=== PATIENT | male | born 1990 | race Caucasian/White ===

== ENCOUNTER 2017-10-02 12:27 | Inpatient (IN) | payer BC, OTHER ==
[~2017-10-02] VITALS: Ht 170.2 cm; Wt 108.9 kg
--- NOTE | 2017-10-02 12:30 | NUR ---
pre-assessment note: pt is in stable condition, V/S WNL. pt is able to sign consents and also verbalizes he understands unit protocols and procedures.
--- NOTE | 2017-10-02 13:04 | NUR ---
Pt. is 27 year old male , admitted to [facility] for medically supervised withdrawal from ETOH withdrawal/dependence . Pt. is NKA, Full Code, on Regular Diet. He is already placed on a 5 day ativan taper, will be started on 10/02/2017. He doesn't have Primary Care Provider at this time, doesn't have prescribed medications. Pt. denies history of withdrawal-induced seizures, pt also denies any medical history except for having surgery on his left wrist. pt verbalized he does not have withdrawal induced seizures. pt is the main source of information, pt at this time appears flushed and is not currently intoxicated, pt verbalizes this is his first time in treatment and has never been to detox. pt was accompanied by his father. pt denies having a primary care physician. pt's V/S are WNL, pt without complaints at this time, re-enforced rules and regulations of the unit. pt appears to be cooperative and compliant. SUBSTANCE USE HISTORY : ETOH 1 pint daily for 5 years, last drink was on 10/01/16 and it was 2 beers
[2017-10-02] MEDS ORDERED: CLONIDINE HCL 0.1 MG TABLET PO PRN (14:00)
[2017-10-02] MEDS ORDERED: LOPERAMIDE HCL 2 MG CAPSULE PO PRN ×2 (14:00)
[2017-10-02] MEDS ORDERED: ONDANSETRON 4 MG/2 ML VIAL IM PRN (14:00)
[2017-10-02] MEDS ORDERED: DICYCLOMINE HCL 20 MG TABLET PO PRN (14:00)
[2017-10-02] MEDS ORDERED: MAG HYDROX/AL HYDROX/SIMETH 30 ML LIQUID UDC PO PRN (14:00)
[2017-10-02] MEDS ORDERED: THIAMINE HCL 200 MG/2 ML VIAL IM ONE (14:00)
[2017-10-02] MEDS ORDERED: LORAZEPAM 2 MG/1 ML VIAL IM PRN (14:00)
[2017-10-02] MEDS ORDERED: LORAZEPAM 1 MG TABLET PO PRN ×2 (14:00)
[2017-10-02] MEDS ORDERED: MIRALAX 17 GM POWD.PACK PO PRN (14:00)
[2017-10-02] MEDS: LORAZEPAM 1 MG TABLET PO SCH ×2 (14:29→20:55)
[2017-10-02 14:45] LABS: *AMPHETAMINE, URINE NEGATIVE (NEGATIVE); *BARBITURATE, URINE NEGATIVE (NEGATIVE); *CANNABINOID, URINE NEGATIVE (NEGATIVE); *COCCAINE, URINE NEGATIVE (NEGATIVE); *OPIATE, URINE NEGATIVE (NEGATIVE); *PHENCYCLIDINE SCREEN,URINE NEGATIVE (NEGATIVE)
[2017-10-02] MEDS: ONDANSETRON ODT 4 MG TAB.RAPDIS SL PRN (16:05)
--- NOTE | 2017-10-02 16:14 | NUR ---
PRN zofran was administered pt verbalized he was nauseated, no s/s of emesis. will re-assess effectiveness of medication
[2017-10-02 16:17] LABS: BASOPHILS # (AUTO) 0.1 K/uL (0.0-8.0); BASOPHILS % (AUTO) 0.7 % (0.0-2.0); EOSINOPHILS # (AUTO) 0.2 K/uL (0.0-0.7); EOSINOPHILS % (AUTO) 1.4 % (0.0-7.0); LYMPHOCYTES # (AUTO) 2.2 K/uL (20.0-40.0); LYMPHOCYTES % (AUTO) 19.2 % (20.5-51.5); MEAN CORPUSCULAR HEMOGLOBIN 32.1 uug (23.8-33.4); MEAN CORPUSCULAR HGB CONC 35 g/dL (32.5-36.3); MONOCYTES # (AUTO) 0.7 K/uL (2.0-10.0); MONOCYTES % (AUTO) 6.1 % (0.0-11.0); NEUTROPHILS # (AUTO) 8.1 K/uL (1.8-8.9); NEUTROPHILS % (AUTO) 72.6 % (38.5-71.5); PLATELET COUNT (AUTO) 248 K/uL (152-348); WHITE BLOOD COUNT (AUTO) 11.2 K/uL (3.6-10.2)
[2017-10-02 16:19] LABS: ALANINE AMINOTRANSFERASE 86 U/L (16-63); ALKALINE PHOSPHATASE 89 U/L (50-136); AMYLASE 31 U/L (25-115); ASPARTATE AMINOTRANSFERASE 39 U/L (15-37); BILIRUBIN,TOTAL 0.3 mg/dL (0.2-1.0); CARBON DIOXIDE 29 mmol/L (21-32); CHLORIDE 103 mmol/L (98-107); CREATININE 0.9 mg/dL (0.6-1.3); GLUCOSE 96 mg/dL (74-106); MAGNESIUM 1.9 mg/dL (1.8-2.4); POTASSIUM 4.3 mmol/L (3.5-5.1); TOTAL PROTEIN, SERUM 7.5 g/dL (6.4-8.2); UREA NITROGEN, BLOOD 17 mg/dL (7-18)
[2017-10-02 16:29] LABS: ETHANOL < 3 MG/DL (0-0)
--- NOTE | 2017-10-02 17:15 | NUR ---
prn re-assessment: zofran was effective pt was able to tolerate po fluids and food intake
[2017-10-02 18:17] VITALS: BP 145/82
--- NOTE | 2017-10-02 19:05 | NUR ---
end of shift note: pt is in stable condition at this time, pt is [facility] for etoh withdrawal/dependence. pt received first dose of taper and tolerated well no A/R noted, last ciwa 6, will endorse pt to installation & maintenance executive nurse.
--- NOTE | 2017-10-02 19:15 | NUR ---
START OF SHIFT Patient is a 27-year-old male admitted today 10/02/17 for ETOH (whiskey) withdrawal. Patient started a 5-day Ativan taper this afternoon at 1500, tolerating well. Last CIWA was 6. Patient received PRN Zofran SL per day shift; it was effective in treating his nausea. Upon assessment, patient is flushed and diaphoretic. Patient reports my legs are restless and jerky and Laxmi been feeling dizzy for the past hour. Patient reports anxiety and difficulty sleeping stating thats why I drink, to help me sleep. Patient verbalized eagerness to go downstairs and smoke. Patient reports headache 5/10 on pain scale. SN encouraged patient to increase fluid intake to maintain hydration. Safety measures in place, bed locked in low position, side rails up x2, call light within reach. Will continue to monitor.
[2017-10-02] MEDS: IBUPROFEN 400 MG TABLET PO PRN (19:55)
--- NOTE | 2017-10-02 19:55 | NUR ---
PRN MOTRIN Patient reports headache 5/10 on pain scale. PRN Motrin given PO. Safety measures in place, call light within reach. Will reassess for effectiveness.
[2017-10-02 20:00] VITALS: BP 145/80
[2017-10-02] MEDS: diphenhydrAMINE 50 MG CAPSULE PO PRN (20:55)
--- NOTE | 2017-10-02 20:55 | NUR ---
PRN MOTRIN REASSESSMENT, PRN BENADRYL GIVEN Patient reports headache has improved, PRN Motrin effective. Patient reports difficulty sleeping. PRN Benadryl given PO. Safety measures in place, call light within reach. Will reassess for effectiveness.
--- NOTE | 2017-10-02 21:55 | NUR ---
PRN BENADRYL REASSESSMENT Patient is resting in bed with eyes closed, respirations even and unlabored. PRN Benadryl effective, in conjunction with scheduled Ativan. Safety measures in place, call light within reach. Will continue to monitor.
--- NOTE | 2017-10-03 | NUR ---
VITALS REFUSED, CIWA DEFERRED Patient refused vital signs, respirations even and unlabored, 16/min. CIWA deferred due to patient sleeping; to be assessed and scored while patient is awake per protocol. Safety measures in place, call light within reach. Will continue to monitor.
--- NOTE | 2017-10-03 07:08 | NUR ---
END OF SHIFT Patient is a 27-year-old male admitted today 10/02/17 for ETOH (whiskey) withdrawal. Today is patients day 2 of 5-day Ativan taper, tolerating well. Last CIWA was 6. Patient received PRN Motrin and PRN Benadryl; both effective. Patient slept for 8 hours, total intake 1,296 mL, void x2, stool x0. Safety measures in place, bed locked in low position, side rails up x2, call light within reach. Will endorse to day shift. Addendum: 10/04/17 at 0700 by MARICRUZ ANTOINE LVN Correction: Patient was admitted yesterday 10/02/17
--- NOTE | 2017-10-03 07:30 | NUR ---
START OF SHIFT Pt 27 y/o male admiteed for etoh withdrawal. Pt received in room on bed awake watching television. Pt alert and oriented to name, place, and time. Perrla. Skin warm and moist to touch. Respirations even unlabored. Pt appears anxious fidgety in bed. Pt appears disheveled with hair uncombed. Clothes scattered throughout the room. Empty drink bottles noted around bed side shelf. It was reported that pt slept for 8 hours last night. Last reported ciwa =6 @ 0400. Pt is on a 5 day ativan taper and is on day 2. Bed on lowest position with side rails x2 up for safety. Call light within reach.
[2017-10-03 08:00] VITALS: BP 125/83
[2017-10-03] MEDS: LORAZEPAM 1 MG TABLET PO SCH ×3 (08:27→21:51)
[2017-10-03] MEDS: FOLIC ACID 1 MG TABLET PO SCH (08:27)
[2017-10-03] MEDS: THIAMINE HCL 100 MG TABLET PO SCH (08:27)
[2017-10-03] MEDS: IBUPROFEN 400 MG TABLET PO PRN ×2 (08:27→14:28)
[2017-10-03] MEDS: MULTIVITAMINS,THERAPEUTIC TABLET PO SCH (08:27)
--- NOTE | 2017-10-03 08:32 | NUR ---
PRN Pt with c/o headache 02/25. Motrin po prn per MD order given and tolerated well.
[2017-10-03] MEDS ORDERED: TUBERCULIN,PURIF.PROT.DERIV. 5 TU/0.1 ML TEST ID ONE (09:00)
--- NOTE | 2017-10-03 09:32 | NUR ---
PRN THADDEUS Pt states pain 09/28.
[2017-10-03 12:39] VITALS: BP 140/84
--- NOTE | 2017-10-03 14:30 | NUR ---
PRN Pt states has headache /. Motrin po prn per MD order given and tolerated well.
--- NOTE | 2017-10-03 15:30 | NUR ---
PRN THADDEUS Pt states pain 10/26.
[2017-10-03 16:00] VITALS: BP 142/71
--- NOTE | 2017-10-03 18:35 | NUR ---
END OF SHIFT Pt 27 y/o male admiteed for etoh withdrawal. Pt alert and oriented to name, place, and time. Perrla. Skin warm and moist to touch. Respirations even unlabored. Pt appears disheveled with hair uncombed. Pt with periods of anxiety this morning. Clothes scattered throughout the floor in room. Pt with low motivation for self care. Pt observed mostly isolative to room throughout the day. Pt was seen by MD today. Pt medication compliant and tolerated well. No ASE noted. Pt is on a 5 day ativan taper and is on day 2. CIWA=9@0800, 9@1200, 9@ 1600. Pt was given motrin po prn per MD order given this morning for a headache 02/25. Bed on lowest position with side rails x2 up for safety. Call light within reach.
--- NOTE | 2017-10-03 19:30 | NUR ---
START OF SHIFT Patient is a 27-year-old male admitted on 10/02/17 for ETOH (whiskey) withdrawal. Patient started a 5-day Ativan taper yesterday, tolerating well. Last CIWA was 9 per day shift. Patient received PRN Motrin twice during day shift for headache, mildly effective. Upon assessment, patient is flushed and complains of N/V, stating "I just threw up about 5 times." Patient also states "I've had a headache all day." Pt reports headache 7/10 on pain scale at current time. Patient reports high levels of anxiety and difficulty sleeping. SN administered PRN Zofran SL for nausea and patient requested to take a shower "because some of the stuff got in my cortez." Safety measures in place, bed locked in low position, side rails up x2, call light within reach. Will continue to monitor.
[2017-10-03] MEDS: ONDANSETRON ODT 4 MG TAB.RAPDIS SL PRN (19:36)
--- NOTE | 2017-10-03 19:36 | NUR ---
JEN PARKS Patient reports N/V stating "I just threw up about 5 times." PRN Sarah given SL. Safety measures in place, call light within reach. Will reassess for effectiveness.
[2017-10-03 20:00] VITALS: BP 129/69
--- NOTE | 2017-10-03 20:06 | NUR ---
PRN ZOFRAN REASSESSMENT Patient reports improvement in N/V, no emesis since start of shift. PRN Zofran effective. Safety measures in place, call light within reach. Will continue to monitor.
[2017-10-03] MEDS: ACETAMINOPHEN 325 MG TABLET PO PRN (21:52)
[2017-10-03] MEDS: diphenhydrAMINE 50 MG CAPSULE PO PRN (21:52)
--- NOTE | 2017-10-03 21:52 | NUR ---
PRN TYLENOL & BENADRYL Patient reports headache 7/10 on pain scale and states that PRN Motrin was not effective during the day shift. PRN Tylenol given PO at 2152, not earlier because patient did not want to take on empty stomach after N/V. Patient states that he has difficulty sleeping and reports that Benadryl was effective last night as sleep aid. PRN Benadryl given PO. Safety measures in place, call light within reach. Will reassess and monitor for effectiveness.
--- NOTE | 2017-10-03 22:52 | NUR ---
PRN TYLENOL & BENADRYL REASSESSMENT Patient states he is feeling sleepy and that headache has improved "a little." PRNs effective. Safety measures in place, call light within reach. Will continue to monitor.
--- NOTE | 2017-10-04 | NUR ---
VITALS REFUSED, CIWA DEFERRED Patient refused midnight vitals; CIWA deferred due to patient sleeping. CIWA to be assessed and scored while patient is awake, per protocol. Patient's respirations are even and unlabored, 16/min. Safety measures in place, call light within reach. Will continue to monitor.
[2017-10-04 04:00] VITALS: BP 110/65
--- NOTE | 2017-10-04 04:00 | NUR ---
CIWA DEFERRED CIWA deferred due to patient sleeping; to be assessed and scored while patient is awake, per protocol. Patient's respirations are even and unlabored, 16/min. Safety measures in place, call light within reach. Will continue to monitor.
--- NOTE | 2017-10-04 07:11 | NUR ---
END OF SHIFT Patient is a 27-year-old male admitted on 10/02/17 for ETOH (whiskey) withdrawal. Today is patients day 3 of 5-day Ativan taper, tolerating well. Last CIWA was 15. Patient received PRN Tylenol PO, Zofran SL and Benadryl PO; all effective. Patient slept for 8 hours, total intake 1,110 mL, void x2, stool x0, emesis x5 at 1915 last night prior to PRN Zofran. No N/V since 1999 last night. Safety measures in place, bed locked in low position, side rails up x2, call light within reach. Will endorse to day shift.
--- NOTE | 2017-10-04 07:32 | NUR ---
START OF SHIFT Pt 27 y/o male admitted for ETOH withdrawal. Pt received in room on bed with eyes closed resting, but easily aousable to name. Pt alert and oriented to name, place, and time. Perrla. Skin warm and moist to touch. Respirations even unlabored. Pt appears disheveled with hair uncombed. Clothes scattered throughout the room floor. Empty drink bottles noted around bed side shelf. It was reported that pt slept for 8 hours last night. Last reported ciwa =15@ 0400. Pt is on a 5 day ativan taper and is on day 3. Bed on lowest position with side rails x2 up for safety. Call light within reach.
[2017-10-04] MEDS: MULTIVITAMINS,THERAPEUTIC TABLET PO SCH (08:16)
[2017-10-04] MEDS: LORAZEPAM 1 MG TABLET PO SCH ×3 (08:16→16:34)
[2017-10-04] MEDS: THIAMINE HCL 100 MG TABLET PO SCH (08:16)
[2017-10-04] MEDS: FOLIC ACID 1 MG TABLET PO SCH (08:16)
[2017-10-04 08:18] VITALS: BP 120/73
[2017-10-04 12:00] VITALS: BP 128/68
[2017-10-04] MEDS: ONDANSETRON ODT 4 MG TAB.RAPDIS SL PRN (12:08)
[2017-10-04] MEDS: ACETAMINOPHEN 325 MG TABLET PO PRN ×2 (12:08→20:25)
--- NOTE | 2017-10-04 12:09 | NUR ---
PRN Pt states feels nauseated. Zofran odt prn per MD order given and tolerated well.
--- NOTE | 2017-10-04 12:10 | NUR ---
PRN Pt states has headache 6/10. Tylenol po prn per MD order given and tolerated well.
--- NOTE | 2017-10-04 13:09 | NUR ---
PRN EVAL Pt denies any nausea at this time.
--- NOTE | 2017-10-04 13:10 | NUR ---
JEN Pt states pain 09/28. Addendum: 10/04/17 at 1316 by GIULIANA MCLAUGHLIN RN incorrect title JEN TRAVIS
[2017-10-04 14:06] LABS: HEPATITIS B SURFACE AG Negative (Negative)
[2017-10-04 16:00] VITALS: BP 120/63
--- NOTE | 2017-10-04 18:32 | NUR ---
END OF SHIFT Pt 27 y/o male admitted for ETOH withdrawal. Pt alert and oriented to name, place, and time. Perrla. Skin warm and moist to touch. Respirations even unlabored. Pt appears disheveled with hair uncombed. Pt stated feels fatigued this morning. Clothes scattered throughout the floor in room. Pt with low motivation for self care. Pt observed mostly isolative to room throughout the day. Pt was seen by MD today. Pt medication compliant and tolerated well. No ASE noted. Pt is on a 5 day ativan taper and is on day 3. CIWA=9@0800, 9@1200, 9@ 1600. Pt was given Tylenol prn per MD order for headache today. Pt was given zofran odt prn per MD order given for nausea today. Bed on lowest position with side rails x2 up for safety. Call light within reach.
--- NOTE | 2017-10-04 19:30 | NUR ---
Start of Shift Note: Report received from day shift nurse. Pt is a 27M, admitted for ETOH withdrawal. Pt is currently on an Ativan taper to manage withdrawal symptoms. Per day shift nurse, pt had c/o headache and nausea which was relieved by PRN medications. Upon start of shift, pt was participating in group activity. During assessment, pt presented with cooperative attitude and requested for medication for 7/10 headache. Will continue with plan of care and closely monitor pt.
[2017-10-04 20:00] VITALS: BP 132/67
--- NOTE | 2017-10-04 20:25 | NUR ---
Tylenol PRN: Pt c/o headache. Pain level 7/10. Tylenol PRN given as ordered.
[2017-10-04] MEDS: diphenhydrAMINE 50 MG CAPSULE PO PRN (20:59)
--- NOTE | 2017-10-04 20:59 | NUR ---
Benadryl PRN: Pt requested medication for sleep. Benadryl PRN given as ordered.
[2017-10-04] MEDS ORDERED: LORAZEPAM 1 MG TABLET PO SCH (21:00)
--- NOTE | 2017-10-04 21:30 | NUR ---
Tylenol Reassessment: Pt reported relief from pain. Pain level 0/10. Tylenol effective.
[2017-10-05 05:00] VITALS: BP 105/60
--- NOTE | 2017-10-05 07:09 | NUR ---
End of Shift Note: Pt currently in bed with eyes closed. Pt c/o headache and inability to sleep during shift. Ativan PRN and Benadryl PRN were given which was effective. Pt slept for 7 hours. Pts CIWA went from 13 @ 2000 to 6 @ 0500. Will endorse to day shift nurse.
--- NOTE | 2017-10-05 07:30 | NUR ---
START OF SHIFT Pt 27 y/o male admitted for ETOH withdrawal. Pt received in room on bed with eyes closed resting, but easily aousable to name. Pt alert and oriented to name, place, and time. Perrla. Skin warm and moist to touch. Respirations even unlabored. Pt appears disheveled with hair uncombed. Empty drink bottles noted around bed side shelf. Pt with low motivation for self care. It was reported that pt slept for 7 hours last night. Last reported ciwa =6@ 0400. Pt is on a 5 day ativan taper and is on day 4. Bed on lowest position with side rails x2 up for safety. Call light within reach.
[2017-10-05 08:00] VITALS: BP 108/72
[2017-10-05] MEDS: MULTIVITAMINS,THERAPEUTIC TABLET PO SCH (08:17)
[2017-10-05] MEDS: FOLIC ACID 1 MG TABLET PO SCH (08:17)
[2017-10-05] MEDS: THIAMINE HCL 100 MG TABLET PO SCH (08:17)
[2017-10-05] MEDS: LORAZEPAM 1 MG TABLET PO SCH ×3 (08:17→21:45)
[2017-10-05 12:29] VITALS: BP 135/81
--- NOTE | 2017-10-05 12:32 | NUR ---
Therapist prompted client to come to group
[2017-10-05] MEDS: ACETAMINOPHEN 325 MG TABLET PO PRN ×2 (14:20→21:45)
--- NOTE | 2017-10-05 14:22 | NUR ---
PRN Pt with c/o headache 12/26. Tylenol po prn per MD order given and tolerated well.
--- NOTE | 2017-10-05 15:22 | NUR ---
PRN THADDEUS Pt states pain 10/26.
--- NOTE | 2017-10-05 15:27 | NUR ---
PRN Pt states has stomach cramp. Bentyl po prn per MD order given and tolerated well.
[2017-10-05 16:00] VITALS: BP 116/62
--- NOTE | 2017-10-05 16:27 | NUR ---
PRN THADDEUS Pt denies any stomach cramp at this time.
--- NOTE | 2017-10-05 18:40 | NUR ---
END OF SHIFT Pt 27 y/o male admitted for ETOH withdrawal. Pt alert and oriented to name, place, and time. Perrla. Skin warm and moist to touch. Respirations even unlabored. Pt appears disheveled with hair uncombed. Pt anxious and irritable this morning. Clothes scattered throughout the floor in room. Pt with low motivation for self care. Pt observed mostly in the recreation room throughout the day. Pt was seen by MD today. Pt medication compliant and tolerated well. No ASE noted. Pt is on a 5 day ativan taper and is on day 4. CIWA=9@0800, 9@1200, 9@ 1600. Pt was given Tylenol prn per MD order for headache today. Pt was given bentyl po prn per MD order for stomach cramps. Bed on lowest position with side rails x2 up for safety. Call light within reach.
[2017-10-05 20:00] VITALS: BP 143/73
--- NOTE | 2017-10-05 20:00 | NUR ---
Start of Shift Notes Received 27 y/o male alec, admitted for medically supervised withdrawal of ETOH. Px was put on 5 day Ativan taper, started at 10/02/2017, px is tolerating well. Last reported CIWA was 9. Px is awake inside his room. Some unfolded clothes noted on top of his cabinet. Px stated his anxiety is 4/10. Px verbalized "I have H/A of 6/10 and can I have Benadryl to help me sleep tonight? Bed is on lowest position, side rails up 2x, call light within reach. We'll continue to monitor.
[2017-10-05] MEDS: diphenhydrAMINE 50 MG CAPSULE PO PRN (21:45)
--- NOTE | 2017-10-05 21:45 | NUR ---
PRN meds Px complained of H/A of 6/10 and wanted Benadryl to help him sleep. Tylenol 320 mg/tab, 2 tabs and Benadryl 50 mg/cap, 1 cap given PO as PRN meds. We'll continue to monitor.
--- NOTE | 2017-10-05 22:45 | NUR ---
Reassessment of H/A Px stated that his H/A improved from scale of 6/10 to 2/10. We'll continue to monitor.
[2017-10-06] VITALS: BP 139/74
[2017-10-06 04:00] VITALS: BP 132/69
--- NOTE | 2017-10-06 04:00 | NUR ---
CIWA deferred CIWA deferred at 0000 and 0400 due to the px is asleep, to reassess if the px is awake. We'll continue to monitor.
--- NOTE | 2017-10-06 07:16 | NUR ---
End of Shift Notes During the shift, Px was given Tylenol 650 mg PO for H/A and it was effective. Benadryl 50 mg PO was given due to px's request, it was effective, Px slept for 8 hours. Pxs oral intake of 1,500 ml, voided 3x, No BM. Pxs last CIWA was 6. At 0630, px was asleep on bed Bed is on lowest position, side rails up 2x, call light within reach. We'll continue to monitor. Px endorsed to AM shift nurse.
--- NOTE | 2017-10-06 07:45 | NUR ---
START OF SHIFT RECEIVED PT RESTING IN BED, A/OX4, RESPIRATIONS EVEN AND UNLABORED. ENOURAGED PT TO PARTICIPATE IN DIVERSIONAL ACTIVITIES AND GROUP FOR ANXIETY AND COPING SKILLS. SIDE RAILS UP X2, BED IN LOWEST POSITION. CALL LIGHT WITHIN REACH. WILL CONTINUE TO MONITOR.
[2017-10-06 08:00] VITALS: BP 109/46
[2017-10-06] MEDS: MULTIVITAMINS,THERAPEUTIC TABLET PO SCH (08:31)
[2017-10-06] MEDS: LORAZEPAM 1 MG TABLET PO SCH ×2 (08:31→21:13)
[2017-10-06] MEDS: FOLIC ACID 1 MG TABLET PO SCH (08:31)
[2017-10-06] MEDS: THIAMINE HCL 100 MG TABLET PO SCH (08:31)
[2017-10-06 12:00] VITALS: BP 114/67
[2017-10-06 17:10] VITALS: BP 139/91
--- NOTE | 2017-10-06 17:33 | NUR ---
PRN Clonidine 0.1PO, Bentyl 20mg PO Administered for increased BP 138/91 and abdominal spasms respectively.Client denies any headache or dizziness. Primary nurse to reassess.
--- NOTE | 2017-10-06 18:33 | NUR ---
REASSESSMENT BP: 127/74, HR:113 UPON REASSESSMENT. PT STATES HE WAS FEELING DEPRESSED THINKING ABOUT HIS FAMILY. REASSURED PT AND ENCOURAGED TO VERBALIZED FEELINGS. WILL CONTINUE TO MONITOR.
--- NOTE | 2017-10-06 18:53 | NUR ---
END OF SHIFT LAST CIWA 8 @1600. PT WAS GIVEN CLONIDINE FOR BP: 138/91; MED EFFECTIVE. PT VERBALIZED HE WAS FEELING DEPRESSED THINKING ABOUT HIS FAMILY AND HIS DAUGHTER. ENCOURAGED PT TO ATTEND ALL GROUPS AND ACTIVITIES TO PROMOTE COPING SKILLS. ALL SAFETY MEASURES IN PLACE. WILL GIVE ENDORSEMENT TO RUBBER TUBING BACKER NURSE.
[2017-10-06 20:00] VITALS: BP 118/64
--- NOTE | 2017-10-06 20:00 | NUR ---
START OF SHIFT NOTE RECEIVED REPORT FROM DAY SHIFT NURSE. PATIENT IS A 27 YEAR OLD MALE ADMITTED FOR ETOH WITHDRAWAL. PATIENT IS ON 5TH DAY OF HIS 5 DAY ATIVAN TAPER. PATIENT WAS EMOTIONAL DURING THE DAY. PATIENT WAS GIVEN PRN CLONIDINE AND BENADRYL . LAST CIWA 8. RECEIVED PATIENT IN THE ROOM. PATIENT WITH FLAT AFFECT, ANXIOUS AND SAD, PATIENT STATES HE MISSED HIS DAUGHTER, REASSURANCE PROVIDED . HE C/O HEADACHE 12/26. SAFETY MEASURES IN PLACE. CALL LIGHT IN REACH. WILL CONTINUE TO MONITOR.
[2017-10-06] MEDS: diphenhydrAMINE 50 MG CAPSULE PO PRN (21:13)
[2017-10-06] MEDS: ACETAMINOPHEN 325 MG TABLET PO PRN (21:13)
--- NOTE | 2017-10-06 21:13 | NUR ---
PRN TYLENOL AND BENADRYL ADMINISTRATION PATIENT C/O HEADACHE AND REQUESTS FOR SLEEP AID. WILL MONITOR FOR EFFECTIVENESS
--- NOTE | 2017-10-06 22:13 | NUR ---
PRN TYLENOL RE-ASSESSMENT PATIENT STATES TYLENOL HELPFUL AND EFFECTIVE. NO PAIN AT THIS TIME.
--- NOTE | 2017-10-07 | NUR ---
JEN RGEEN RE-ASSESSMENT/CIWA DEFERRED PATIENT IN BED WITH EYES CLOSED. VS REFUSED. RESPIRATION EVEN AND UNLABORED. SAFETY MEASURES IN PLACE. CALL LIGHT IN REACH . WILL CONTINUE TO MONITOR
--- NOTE | 2017-10-07 04:00 | NUR ---
CIWA DEFERRED PATIENT IN BED WITH EYES CLOSED. VS REFUSED. RESPIRATION EVEN AND UNLABORED. SAFETY MEASURES IN PLACE. CALL LIGHT IN REACH . WILL CONTINUE TO MONITOR
--- NOTE | 2017-10-07 07:15 | NUR ---
END OF SHIFT NOTE PATIENT SLEPT 6 HOURS. FLUID INTAKE 1,105 ML. VOIDED X 2 . NO BM. MONITORED THROUGHOUT SHIFT. MEDICATION GIVEN ORDERED, TOLERATED WELL AND NO ADVERSE REACTION. PATIENT WAS EMOTIONAL DURING SHIFT, HE STATED HE MISSES HIS DAUGHTER. REASSURANCE PROVIDED. PATIENT C/O HEADACHE AND REQUESTED FOR SLEEP AID. PRN TYLENOL AND SEROQUEL GIVEN. SAFETY MEASURES IN PLACE. CALL LIGHT IN REACH. WILL CONTINUE TO MONITOR . LAST CIWA 6.
--- NOTE | 2017-10-07 07:43 | NUR ---
START OF SHIFT RECEIVED PT A/OX4, RESPIRATIONS EVEN AND UNLABORED. PT APPEARS AGITATED, ANXIOUS, AND DEPRESSED STATES, "I AM FEELING REALLY HOMESICK." ENCOURAGED PT TO PARTICIPATE IN ALL ACTIVITIES TO PROMOTE COPING SKILLS. SIDE RAILS UP X2, BED IN LOWEST POSITION. CALL LIGHT WITHIN REACH. SAFETY MEASURES IN PLACE. WILL CONTINUE TO MONITOR.
[2017-10-07 08:00] VITALS: BP 116/78
[2017-10-07] MEDS: MULTIVITAMINS,THERAPEUTIC TABLET PO SCH (08:35)
[2017-10-07] MEDS: FOLIC ACID 1 MG TABLET PO SCH (08:35)
[2017-10-07] MEDS: THIAMINE HCL 100 MG TABLET PO SCH (08:35)
--- NOTE | 2017-10-07 08:37 | NUR ---
PT REFUSED FINAL ATIVAN TAPER DOSE. EXPLAINED RISKS AND BENEFITS. PT VERBALIZED UNDERSTANDING, BUT PT STILL REFUSED MED. PT STATED, "I DON'T FEEL LIKE I NEED ATIVAN ANYMORE. I AM READY TO GO HOME." WILL CONTINUE TO MONITOR.
[2017-10-07] MEDS ORDERED: LORAZEPAM 1 MG TABLET PO SCH (09:00)
[2017-10-07 12:00] VITALS: BP 119/68
--- NOTE | 2017-10-07 13:02 | NUR ---
REASSESSMENT PT REPORTED TYLENOL FOR ERADICATING HEADACHE. WILL CONTINUE TO MONITOR.
--- NOTE | 2017-10-07 14:02 | NUR ---
PRN PT REQUESTED TYLENOL 650 MG PO PRN FOR HEADACHE 01/26. WILL CONTINUE TO MONITOR.
[2017-10-07] MEDS: ACETAMINOPHEN 325 MG TABLET PO PRN (14:05)
[2017-10-07 16:00] VITALS: BP 127/65
[2017-10-07] MEDS ORDERED: DIPH50CA37 PO (18:17)
[2017-10-07] MEDS ORDERED: CLON0.1T14 PO (18:17)
--- NOTE | 2017-10-07 19:34 | NUR ---
END OF SHIFT LAST CIWA 6 @1600. PT WAS AGITATED ABOUT WANTING TO BE DISCHARGED EARLY TODAY. PT AGREED TO BE DISCHARGED TOMORROW SCHEDULED. PT STATES, "I AM FEELING HOMESICK. BUT I FEEL BETTER THAN YESTERDAY." TYLENOL 650 MG PO PRN GIVEN FOR HEADACHE; MED WAS EFFECTIVE. WILL GIVE ENDORSEMENT AND PERTINENT INFO TO PIPE AND TEST SUPERVISOR NURSE.
[2017-10-07 20:00] VITALS: BP 133/72
--- NOTE | 2017-10-07 20:00 | NUR ---
START OF SHIFT NOTE RECEIVED REPORT FROM DAY SHIFT NURSE. PATIENT IS A 27 YEAR OLD MALE ADMITTED FOR ETOH WITHDRAWAL. PATIENT COMPLETED ATIVAN TAPER, TOLERATED WELL AND NO ADVERSE REACTION. PATIENT IS MEDICALLY CLEARED TO BE DISCHARGE TOMORROW. PATIENT WAS GIVEN PRN TYLENOL FOR HEADACHE . LAST CIWA 6. RECEIVED PATIENT IN THE ROOM. DIRTY CLOTHES IN THE ROOM AND SMELLY ROOM. PATIENT ANXIOUS AND FIDGETY. SAFETY MEASURES IN PLACE. CALL LIGHT IN REACH. WILL CONTINUE TO MONITOR.
[2017-10-07] MEDS: diphenhydrAMINE 50 MG CAPSULE PO PRN (22:00)
--- NOTE | 2017-10-07 22:00 | NUR ---
PRN BENADRYL ADMINISTRATION PATIENT REQUESTS FOR SLEEP AID. WILL MONITOR FOR EFFECTIVENESS
--- NOTE | 2017-10-07 23:30 | NUR ---
PRN BENADRYL RE-ASSESSMENT PATIENT IN BED WITH EYES CLOSED. RESPIRATION EVEN AND UNLABORED. WILL CONTINUE TO MONITOR
[2017-10-08] VITALS: BP 132/88
--- NOTE | 2017-10-08 | NUR ---
CIWA DEFERRED PATIENT SLEEPING. CIWA DEFERRED. VS REFUSED. RESPIRATION EVEN AND UNLABORED. SAFETY MEASURES IN PLACE. WILL CONTINUE TO MONITOR. Addendum: 10/08/17 at 0658 by RACHEL RINALDI LVN ERROR: PATIENT IN BED , AWAKE , ANXIOUS DUE TO HIM LEAVING. PATIENT DID NOT WANT ANYTHING AND STATES HE WILL KEEP ON TRYING UNTIL HE FALLS ASLEEP.
--- NOTE | 2017-10-08 04:00 | NUR ---
CIWA DEFERRED PATIENT SLEEPING. CIWA DEFERRED. VS REFUSED. RESPIRATION EVEN AND UNLABORED. SAFETY MEASURES IN PLACE. WILL CONTINUE TO MONITOR.
--- NOTE | 2017-10-08 07:08 | NUR ---
END OF SHIFT NOTE PATIENT SLEPT 3 HOURS. FLUID INTAKE1,546 ML.VOIDED X 1. NO BM. MONITORED PATIENT THROUGHOUT SHIFT. PATIENT IS DISCHARGING TODAY. PATIENT IS MEDICALLY CLEARED AND COMPLETED ATIVAN TAPER, TOLERATED WELL AND NO ADVERSE REACTION. PATIENT WAS ANXIOUS DUE TO HIM LEAVING TODAY. PATIENT WAS GIVEN PRN BENADRYL FOR SLEEP, INEFFECTIVE, PATIENT STATES DOES NOT NEED ANYTHING AND WILL TRY UNTIL HE FALLS ASLEEP. PATIENT PATIENT COMPLIANT WITH MEDICATION AND TREATMENT PLAN. SAFETY MEASURES IN PLACE. CALL LIGHT IN REACH. WILL CONTINUE TO MONITOR. LAST CIWA 2.
--- NOTE | 2017-10-08 07:30 | NUR ---
START OF SHIFT RECEIVED PT A/OX4, RESPIRATIONS EVEN AND UNLABORED. PT APPEARS ANXIOUS, VERBALIZED THAT PT "CANNOT WAIT TO GET OUT OF HERE." PT IS TO BE DISCHARGED TODAY. ALL SAFETY MEASURES IN PLACE. WILL CONTINUE TO MONITOR.
[2017-10-08 08:00] VITALS: BP 120/56
[2017-10-08] MEDS: THIAMINE HCL 100 MG TABLET PO SCH (08:34)
[2017-10-08] MEDS: MULTIVITAMINS,THERAPEUTIC TABLET PO SCH (08:34)
[2017-10-08] MEDS: FOLIC ACID 1 MG TABLET PO SCH (08:34)
--- NOTE | 2017-10-08 09:25 | NUR ---
DISCHARGE NOTE PT IS A/OX4, IN STABLE CONDITION, VVS. D/C INSTRUCTIONS GIVEN AND PT VERBALIZED UNDERSTANDING. ALL D/C PAPERWORK SIGNED, DATED, COPIED. PRESCRIPTIONS HAS BEEN SENT TO PHARMACY ELECTRONICALLY. PT DID NOT BRING HOME MEDS, OR TOILETRIES ON UNIT. PT LEFT THE BUILDING WITH ALL BELONGINGS, D/C PAPERWORK ON 924 AT 10/08/17. PT HAS BEEN PICKED UP BY "GEET[facility] RODAS" AND HAS BEEN TAKEN TO [facility].
== END 2017-10-08 09:25 | disposition other institution (70) | DRG 895 ==
LOC: SRC 12:27
PROVIDERS: ADMIT Internal Medicine; ATTEND Internal Medicine
PROC: HZ2ZZZZ Detoxification Services for Substance Abuse Treatment (ICD-10-PCS; principal; 2017-10-02)
PROC: HZ31ZZZ Individual Counseling for Substance Abuse Treatment, Behavioral (ICD-10-PCS; 2017-10-04)
PROC: HZ41ZZZ Group Counseling for Substance Abuse Treatment, Behavioral (ICD-10-PCS; 2017-10-04)
DX: F10.230 Alcohol dependence with withdrawal, uncomplicated (principal); I15.9 Secondary hypertension, unspecified; K70.10 Alcoholic hepatitis without ascites; F17.210 Nicotine dependence, cigarettes, uncomplicated; Y90.0 Blood alcohol level of less than 20 mg/100 ml; Z82.49 Family history of ischemic heart disease and other diseases of the circulatory system; Z81.1 Family history of alcohol abuse and dependence; F41.9 Anxiety disorder, unspecified; F32.9 Major depressive disorder, single episode, unspecified
CPT/HCPCS: 36415; 70030-TC; 80307; 83735; 85025; 86580; 86592; 86705; 86803; 87340; 87806; G0480; J3411; Q0162; Q0163